=== PATIENT | female | born 1980 | race Caucasian/White ===

== ENCOUNTER 2016-11-22 11:08 | Emergency (ER) | payer BC, MEDICAID ==
[~2016-11-22] VITALS: Ht 157.5 cm; Wt 80.0 kg
[2016-11-22] MEDS ORDERED: HYDR-3281 (11:16)
[2016-11-22] MEDS ORDERED: IBUP-2030 (11:16)
[2016-11-22] MEDS ORDERED: ERGO500013 (11:16)
[2016-11-22] MEDS ORDERED: TRAN650T5 (11:16)
[2016-11-22] MEDS ORDERED: SODIUM CHLORIDE 0.9% 1,000 ML IV ONE (13:45)
[2016-11-22] MEDS ORDERED: KETOROLAC 30MG/ML VIAL IV ONE (13:45)
[2016-11-22] MEDS ORDERED: DIPHENHYDRAMINE 50MG/ML VIAL IV ONE (13:45)
[2016-11-22] MEDS ORDERED: METOCLOPRAMIDE HCL 10MG/2ML VIAL IV ONE (13:45)
[2016-11-22 13:59] LABS: BASOPHILS % 0.3 % (0.0-2.0); HEMATOCRIT. 28.7 % (36.0-48.0); HEMOGLOBIN. 8.7 g/dL (12.0-16.0); LYMPHOCYTES % 10.5 % (20.0-50.0); MEAN CORPUSCULAR HEMOGLOBIN 20.4 pg (28.0-32.0); MEAN CORPUSCULAR VOLUME 67.1 fL (81.0-99.0); MEAN PLATELET VOLUME 7.9 fl (7.4-10.4); MONOCYTES % 4.4 % (2.0-8.0); NEUTROPHILS % 84.8 % (40.0-76.0); PLATELET 262 x1000/uL (130-400); RED BLOOD CELL COUNT 4.28 mill/uL (4.2-5.4); RED CELL DISTRIBUTION WIDTH 18.6 % (11.6-14.6)
[2016-11-22 14:20] LABS: HCG SCREEN NEGATIVE
[2016-11-22 14:40] LABS: PLATELET ESTIMATE N12
[2016-11-22 17:12] LABS: CLARITY URINE CLEAR (CLEAR); COLOR URINE YELLOW (YELLOW); GLUCOSE URINE NEGATIVE (NEGATIVE); KETONES URINE 2+ (NEGATIVE); LEUKOCYTE ESTERASE URINE 3+ (NEGATIVE); NITRITE URINE NEGATIVE (NEGATIVE); OCCULT BLOOD URINE NEGATIVE (NEGATIVE); PH URINE 6.5 (4.5-8.0); PROTEIN URINE NEGATIVE (NEGATIVE); SPECIFIC GRAVITY URINE 1.011 (1.005-1.030)
[2016-11-22 18:37] VITALS: BP 122/67
== END 2016-11-22 18:49 | disposition home or self-care (01) ==
LOC: ER 11:25
DX: R51 Headache (principal); D64.9 Anemia, unspecified; N39.0 Urinary tract infection, site not specified; F41.0 Panic disorder [episodic paroxysmal anxiety]; F32.9 Major depressive disorder, single episode, unspecified; I95.9 Hypotension, unspecified; R42 Dizziness and giddiness; Z98.890 Other specified postprocedural states
CPT/HCPCS: 36415; 70450; 81001; 84703; 85025; 93005; 96361; 96374; 96375; 99285; J1200; J1885; J2765; J7030; Z7610